=== PATIENT | male | born 1990 | race Hispanic/Latino ===

== ENCOUNTER 2018-08-03 10:03 | Inpatient (IN) ==
[2018-08-03] MEDS ORDERED: NICODERM PATCH TD PRN ×2 (12:23→13:52)
[2018-08-03] MEDS ORDERED: MOTRIN PO PRN (12:23)
[2018-08-03] MEDS ORDERED: ZOFRAN IV PRN (12:23)
[2018-08-03] MEDS ORDERED: TUBERSOL ID ONE (12:23)
[2018-08-03] MEDS ORDERED: SENOKOT PO PRN (12:23)
[2018-08-03] MEDS ORDERED: TYLENOL PO PRN (12:23)
[2018-08-03] MEDS ORDERED: NICOTINE GUM BUCCAL PRN (12:23)
[2018-08-03] MEDS ORDERED: IMODIUM PO PRN ×2 (12:23)
[2018-08-03] MEDS ORDERED: ZOFRAN ODT PO PRN (12:23)
[2018-08-03] MEDS ORDERED: PHENOBARBITAL IV PRN (12:23)
[2018-08-03] MEDS ORDERED: DESYREL PO PRN (12:23)
[2018-08-03] MEDS ORDERED: D5W 1,000 ML IV PRN (12:23)
[2018-08-03] MEDS ORDERED: SEROQUEL PO PRN (12:23)
[2018-08-03] MEDS ORDERED: ZOFRAN IM PRN (12:23)
[2018-08-03] MEDS ORDERED: MAALOX PLUS LIQUID PO PRN (12:23)
[2018-08-03] MEDS ORDERED: DULCOLAX PR PRN (12:23)
[2018-08-03] MEDS ORDERED: ROBAXIN PO PRN (12:41)
[2018-08-03] MEDS ORDERED: BENTYL PO PRN (12:41)
[2018-08-03] MEDS ORDERED: LIBRIUM PO PRN (12:41)
[2018-08-03] MEDS ORDERED: SINEMET 25/100 PO PRN (12:41)
[2018-08-03] MEDS ORDERED: ATARAX PO PRN (12:41)
[2018-08-03] MEDS ORDERED: SUBUTEX SL SCH ×2 (12:45→21:00)
[2018-08-03 12:49] LABS: HEMATOCRIT 43.6 % (42.0-52.0); MCH 27.9 PG (27-31); MCHC 32.1 g/dL (33-37); MPV 9.9 FL (7.4-10.4); RBC 5.01 XMIL (4.7-6.1); WBC 4.26 X1000 (4.8-10.8)
[2018-08-03 12:56] LABS: URINE SOURCE CLEAN CATCH
[2018-08-03 13:08] LABS: BILIRUBIN URINE NEGATIVE (NEGATIVE); BLOOD URINE NEGATIVE (NEGATIVE); CLARITY CLEAR (CLEAR); COLOR YELLOW; GLUCOSE URINE NEGATIVE (NEGATIVE); KETONE URINE NEGATIVE (NEGATIVE); LEUKOCYTES URINE TRACE (NEGATIVE); NITRITE URINE NEGATIVE (NEGATIVE); PROTEIN URINE NEGATIVE (NEGATIVE); UROBILINOGEN URINE NORMAL
[2018-08-03 13:09] LABS: UR AMPHETAMINES QUAL PRESUMPTIVE POSITIVE (NONE DETECT); UR BARBITUATES QUAL NONE DETECTED (NONE DETECT); UR BENZODIAZEPIN QUAL NONE DETECTED (NONE DETECT); UR CANNABINOIDS QUAL PRESUMPTIVE POSITIVE (NONE DETECT); UR COCAINE QUAL NONE DETECTED (NONE DETECT); UR METHADONE QUAL NONE DETECTED (NONE DETECT); UR METHAMPHETAMINE QUAL NONE DETECTED (NONE DETECT); UR OPIATES QUAL NONE DETECTED (NONE DETECT); UR OXYCODONE QUAL NONE DETECTED (NONE DETECT); UR PCP QUAL NONE DETECTED (NONE DETECT); UR PROPOXYPHENE QUAL NONE DETECTED (NONE DETECT); UR TCA QUAL NONE DETECTED (NONE DETECT)
[2018-08-03 13:10] LABS: AGAP 9; ALBUMIN 4.6 g/dL (3.5-5.0); ALKALINE PHOSPHATASE 69 U/L (32-122); AMYLASE 138 U/L (20-200); BUN 11 mg/dL (8-22); CALCIUM 9.3 mg/dL (8.8-10.2); CHLORIDE 105 mmol/L (98-107); COSMO 285; CREATININE 0.7 mg/dL (0.7-1.2); ESTIMATED GFR > 60; GLUCOSE 102 mg/dL (70-104); GOT 23 U/L (10-34); GPT 44 U/L (10-44); LIPASE 237 U/L (13-60); POTASSIUM 4.6 mmol/L (3.5-5.1); SODIUM 143 mmol/L (136-145); TCO2 29 mmol/L (25-35); TOTAL PROTEIN 7.3 g/dL (6.3-8.3)
[2018-08-03 13:13] LABS: URINE BACTERIA 1+ /HFP; URINE EPITHELIAL CELLS <10 /HPF (<10)
[2018-08-03 13:17] LABS: INR 0.97; PROTIME 13.4 Seconds (11.0-16.0)
[2018-08-04] MEDS: PROTONIX PO SCH (06:06)
[2018-08-04] MEDS: VITAMIN B-1 PO SCH (10:46)
[2018-08-04] MEDS: SUBUTEX SL SCH ×3 (10:46→21:58)
[2018-08-04] MEDS: FOLIC ACID PO SCH (10:46)
[2018-08-04] MEDS: THERA M PLUS PO SCH (10:46)
--- NOTE | 2018-08-04 22:17 | PROGRESS NOTE ---
DATE: 08/04/2018 SUBJECTIVE: Patient has no new complaints. States overall he is feeling a lot better. Still having some muscle aches and nausea. He had lots of sweating episodes last night. PHYSICAL EXAMINATION: Vital Signs: Reviewed. Temperature 98.7 degrees, pulse 90, respiratory 20, BP 120/79. General: Patient is pleasant to talk with. He is in no current respiratory distress. HEENT: Normocephalic. Neck: Supple. Cardiovascular: Regular rate. No murmurs. Chest: Clear, nonlabored. Abdomen: Soft, nondistended. Extremities: Moves all extremities. ASSESSMENT: 1. Nausea and vomiting. 2. Abdominal pain. 3. Paresthesias. 4. Opiate abuse, withdrawal, and stabilization. CONSULTATIONS: None. PROCEDURES: None. BRIEF HOSPITAL COURSE AND PLAN: Patient was admitted to the hospital. He will continue on Another [facility] protocol. We will continue Subutex at 3 times a day at 2 mg. If he tolerates, we will continue to wean that over the next few days and discharge over the next 1 or 2 days. cc: Ethan Richardson MD
[2018-08-05] MEDS: SUBUTEX SL SCH (06:26)
[2018-08-05] MEDS: PROTONIX PO SCH (06:27)
[2018-08-05] MEDS: FOLIC ACID PO SCH (11:33)
[2018-08-05] MEDS: VITAMIN B-1 PO SCH (11:33)
[2018-08-05] MEDS: THERA M PLUS PO SCH (11:33)
[2018-08-05 16:04] VITALS: BP 127/76
[2018-08-05] MEDS ORDERED: SUBUTEX SL SCH (21:00)
--- NOTE | 2018-08-06 07:45 | DISCHARGE SUMMARY ---
ADMISSION DATE: 08/03/2018 DISCHARGE DATE: 08/05/2018 DISCHARGE DIAGNOSES: 1. Nausea. 2. Abdominal pain. 3. Myalgias. 4. Paresthesias. 5. Paroxysmal sweating. 6. Opiate abuse, withdrawal and stabilization. CONSULTATIONS: None. PROCEDURE: None. BRIEF HOSPITAL COURSE: Patient is a 28-year-old male who presented to the hospital and treated in usual fashion, placed on Another [facility] protocol. He had been abusing opiates that he had been buying off the street, fentanyl. He was admitted, placed on Subutex which he tolerated very well. His withdrawal symptoms quickly resolved and he continued to improve. DISPOSITION: We will continue to wean the patient over the next 3 days at home on Subutex. Discussed with patient after he stops Subutex that he will need to start naltrexone. cc: Ethan Richardson MD
== END 2018-08-05 18:55 | disposition home or self-care (01) | DRG 897 ==
LOC: P.MEDSURG 10:29
PROVIDERS: ADMIT Family Medicine; ATTEND Family Medicine
CPT/HCPCS: 80053; 80104; 80301; 80305; 80307; 80320; 81001; 82055; 82150; 83690; 85027; 85610; 86580; A9270; G0431; G0434; G0477; G0480; G6040